=== PATIENT | male | born 1935 | race Caucasian/White ===

== ENCOUNTER 2016-04-25 07:11 | Day surgery (SDC) | payer MEDICARE ==
[~2016-04-25] VITALS: Ht 180.3 cm; Wt 60.4 kg
[~2016-04-25 07:11] MED LIST: ASA CHILDREN'S81 MG PO; COREG DPS6.25 MG PO; CORTISPORIN CR7.5 GM; DELTASONE DPS10 MG PO; DUONEB DPS3 ML IH; FEOSOL-DPS325 MG PO; LASIX DPS20 MG PO; LIPITOR DPS40 MG PO; MAALOX DPS30 ML PO; MIRALAX PACKET17 GM PO; MUCINEX1200 MG PO; NITROGLYCERIN4.9 GM; PRILOSEC40 MG PO; PROVENTIL HFA6.7 GM IH; RESTORIL DPS15 MG PO; SPIRIVA18 MCG IH; SURFAK DPS240 MG PO; SYMBICORT160 MCG/6 IH; SYNTHROID DPS0.05 MG PO; TRICOR145 MG PO; TYLENOL DPS325 MG PO
--- NOTE | 2016-05-21 08:53 | OR ---
ADMIT: 04/25/2016 RM/LOC: [facility] MR#: [id number] [address] [id number] ANIL HURLEY [address] [place] [address] Operative/Delivery Room Report SEX: M AGE: 80 : 1935 SURGERY DATE: 04/25/2016 SURGEON: Byron Sanderson MD PREPROCEDURE DIAGNOSIS: Anemia. POSTPROCEDURE DIAGNOSES: 1. Small type 1 sliding hiatal hernia. 2. Multiple colon polyps and diffuse diverticulosis. PROCEDURE: EGD and colonoscopy with multiple cold polypectomies. INDICATIONS: The patient is a 80-year-old with anemia of unknown origin, who presents for upper and lower endoscopy. FINDINGS: The patient was taken to the endoscopy suite. IV sedation was given. He was placed in left lateral decubitus position. A bite-block was placed in the patient's mouth. The gastroscope was introduced down the oropharynx, down the esophagus, into the stomach, through the pylorus and the duodenum. The duodenal bulb, 2nd and 3rd portions of the duodenum appeared normal with no pathology. Stomach appeared normal with no pathology. On retroflexion view, there was about a 2-3 cm type 1 sliding hiatal hernia. On exam of the GE junction, there was a normal squamocolumnar junction with no esophagitis, no varices, no bleeding source. The gastroscope was removed. Next, the colonoscope was introduced into the rectum and advanced to cecum using abdominal pressure, changing position. Careful colonoscopic examination with an excellent prep, there were multiple polyps anywhere from several millimeters to about a centimeter in size, removed from the cecum, hepatic flexure, splenic flexure, and sigmoid colon. These were removed in a piecemeal fashion using cold biopsy forceps. The rectal mucosa was normal. There was diffuse scattered diverticular disease. The colonoscope was removed. The patient tolerated the procedure without difficulty and transferred to the recovery room in good condition. Byron Sanderson MD/ baltazar JOB #: [id number] CC: Byron Sanderson MD, Attending Physician FAMILY PHYSICIAN, Family Physician
== END 2016-04-25 13:24 | disposition home or self-care (01) ==
LOC: SSS 07:11
PROC: 0DJ08ZZ Inspection of Upper Intestinal Tract, Via Natural or Artificial Opening Endoscopic (ICD-10-PCS; principal; 2016-04-25)
PROC: 0DBE8ZX Excision of Large Intestine, Via Natural or Artificial Opening Endoscopic, Diagnostic (ICD-10-PCS; principal; 2016-04-25)
PROC: 0DBL8ZX Excision of Transverse Colon, Via Natural or Artificial Opening Endoscopic, Diagnostic (ICD-10-PCS; principal; 2016-04-25)
DX: D12.3 Benign neoplasm of transverse colon (principal); D12.0 Benign neoplasm of cecum; D12.6 Benign neoplasm of colon, unspecified; K44.9 Diaphragmatic hernia without obstruction or gangrene; K57.30 Diverticulosis of large intestine without perforation or abscess without bleeding; J44.9 Chronic obstructive pulmonary disease, unspecified; I25.2 Old myocardial infarction; I10 Essential (primary) hypertension; K21.9 Gastro-esophageal reflux disease without esophagitis; E07.9 Disorder of thyroid, unspecified; E78.00 Pure hypercholesterolemia, unspecified; Z90.49 Acquired absence of other specified parts of digestive tract; Z98.890 Other specified postprocedural states; Z79.82 Long term (current) use of aspirin; Z79.899 Other long term (current) drug therapy

== ENCOUNTER → 2016-11-02 | Outpatient (CLI) | payer MEDICARE | END | disposition home or self-care (01) | LOC: RAD.S 12:44 | DX: J44.9 Chronic obstructive pulmonary disease, unspecified (principal); J43.9 Emphysema, unspecified; R91.8 Other nonspecific abnormal finding of lung field; K76.89 Other specified diseases of liver ==